=== PATIENT | female | born 1955 | race Caucasian/White ===

== ENCOUNTER 2023-09-02 08:10 | Outpatient (CLI) | payer OTHER, SELFPAY ==
[2023-09-02] MEDS: DENOSUMAB 60 MG/ML SYRINGE SQ (08:31)
[2023-09-02 08:32] VITALS: BP 147/69; PULSE 60; RESP 14; TEMP 36.8; O2SAT 96
== END 2023-09-02 08:45 | disposition home or self-care (01) ==
LOC: INF 08:15
PROVIDERS: PCP Family Medicine; Visit Provider Family Medicine
DX: M81.0 Age-related osteoporosis without current pathological fracture (principal)
CPT/HCPCS: 96372; J0897

== ENCOUNTER 2024-03-06 08:21 | Outpatient (CLI) | payer MEDICARE, SELFPAY ==
[2024-03-06 08:30] VITALS: BP 114/59; PULSE 58; RESP 16; TEMP 36.7; O2SAT 99
[2024-03-06] MEDS: DENOSUMAB 60 MG/ML SYRINGE SQ (08:30)
== END 2024-03-06 08:40 | disposition home or self-care (01) ==
PROVIDERS: PCP Family Medicine; Visit Provider Family Medicine
DX: M81.0 Age-related osteoporosis without current pathological fracture (principal)
CPT/HCPCS: 96372; J0897

== ENCOUNTER 2024-09-14 10:07 | Outpatient (CLI) | payer MEDICARE, SELFPAY ==
[2024-09-14 10:21] VITALS: BP 123/63; PULSE 53; RESP 16; TEMP 36.6; O2SAT 98
[2024-09-14] MEDS: DENOSUMAB 60 MG/ML SYRINGE SUBCUT (10:21)
== END 2024-09-14 10:30 | disposition home or self-care (01) ==
LOC: INF 10:08
PROVIDERS: PCP Family Medicine; Visit Provider Family Medicine
DX: M81.0 Age-related osteoporosis without current pathological fracture (principal)
CPT/HCPCS: 96372; J0897

== ENCOUNTER 2024-10-26 13:37 | Outpatient (CLI) | payer MEDICARE, SELFPAY ==
--- NOTE | 2024-10-26 13:41 | XR_ITS ---
FINAL REPORT CLINICAL HISTORY: Foot pain COMPARISON: None FINDINGS: RIGHT FOOT 3 views of the right foot were obtained. There is no acute fracture or dislocation. Visualized joint spaces are normally aligned. There is soft tissue swelling overlying the medial aspect of the distal 1st metatarsal. There may be mild soft tissue calcification and questionable cortical lucency of the medial 1st metatarsal head. IMPRESSION: Constellation of features which may be seen with gout. Correlate clinically. Reviewed, Interpreted and Dictated by Petar Pollock MD Transcribed by Mohini Tinajero Authenticated and [facility]
--- NOTE | 2024-10-26 13:41 | XR_ITS ---
FINAL REPORT CLINICAL HISTORY: Foot pain COMPARISON: None FINDINGS: LEFT FOOT Three views of the left foot demonstrate no acute fracture or dislocation. The visualized joint spaces are normally aligned. There is mild soft tissue swelling overlying the medial 1st metatarsal. IMPRESSION: Soft tissue swelling without acute bony abnormality. Reviewed, Interpreted and Dictated by Petar Pollock MD Transcribed by Mohini Tinajero Authenticated and [facility]
== END 2024-10-26 23:59 | disposition home or self-care (01) ==
LOC: RAD 13:38
PROVIDERS: PCP Family Medicine; Visit Provider Podiatrist
DX: M79.671 Pain in right foot (principal); M79.672 Pain in left foot
CPT/HCPCS: 73630

== ENCOUNTER 2025-03-19 13:03 | Outpatient (CLI) | payer MEDICARE, SELFPAY ==
--- OUTSIDE RECORDS SUMMARY | 2025-03-14 09:00 | XMS_ITS | Encounter Summary ---
Author Organization [facility] ystem Address [address] [place] [address] Care Team Providers Care Plastics Technician Name Role Phone Josee Escobedo Primary Care Provider [phone] [phone] Encounter Details Date Type Department Care Team (Late st Contact Info) Description 03/14/2025 9:00 AM EDT Office Visit [facility] BARIATRIC SURGERY [address] [place] [address] Bryon Valladares, REHABILITATION TECHNICIAN [address] [place] [address] Underweight (BMI < 18.5) (Primary Dx); S/P bariatric surgery; Intestinal malabsorption, unspecified type; Fatigue, unspecified type; Abnormal blood level of iron; Vitamin D deficiency Social History Tobacco Use Types Packs/Day Years Used Date Smoking Tobacco: Never Passive Smoke Exposure: Never Smokeless Tobacco: Never Tobacco Cessation:Counseling Given: Not Answered Alcohol Use Standard Drinks/Week Comments Never 0 (1 standard drink = 0.6 oz pur e alcohol) Comments Unknown Sex and Gender Information Value Date Recorded Sex Assigned at Female 02/29/2024 2:29 PM EDT Legal Sex Female 10:22 AM EDT Gender Identity Female 02/29/2024 2:29 PM EDT Sexual Orientation Not on file documented as of this encounter Last Filed Vital Signs Vital Sign Reading Time Taken Comments Blood Pressure 104/70 03/14/2025 9:05 AM EDT Pulse 61 03/14/2025 9:05 AM EDT Temperature 37.3 C (99.1 F) 03/14/2025 9:05 AM EDT Respiratory Rate 14 03/14/2025 9:05 AM EDT Oxygen Saturation - - Inhaled Oxygen Concentration - - Weight 42.2 kg (93 lb) 03/14/2025 9:05 AM EDT Height 154.9 cm (5' 1 ) 03/14/2025 9:05 AM EDT Body Mass Index 17.57 03/14/2025 9:05 AM EDT documented in this encounter Progress Notes * Bryon Valladares APRN - 03/14/2025 9:00 AM EDTAddended by: BRYON VALLADARES on: 03/16/2025 11:42 AM Modules accepted: Orders * Bryon Valladares APRN - 03/14/2025 9:00 AM EDT [facility] Bariatric Surgery [address] [address] Patient Name: Janey Manzo Date of : 1955 Date of Visit: 03/14/2025 Reason for Visit: SAMAN HPI: s/p laparoscopic RNY (75 cm antercolic Mat)/TAE/BRENDA w/ Dr. Nilton Hutchins 05/09/2015 Reason for transfer: Unable to maintain weight/protein is very low JS is a 69 year old female here today for an assessment of care. She is s/p 10 years laparoscopic RNY (75 cm antercolic Mat)/TAE/BRENDA w/ Dr. Nilton Hutchins 05/09/2015. Patient and retired in 2017 and relocated back to [place] to be closer to family. Of note, patient has seen [facility] for vitamin concerns. HAYDEN was confirmed to be in 02/2023. Wishes to proceed with [facility]. Reports an uneventful surgery. Op note reviewed. At the time, had a BMI was 36.2 with comorbiditiesof HTN, GERD, hyperlipidemia, pre-diabetes, arthropathy and urinary incontinence. Patient reports a pre surgery weight of 225 lbs. States she was content/maintaining weight around 125 lbs. Today's weight in office is 93 lbs. Weight concerns/decline is the primary reason for needing to reestablish bariatric care. States herweight decline has been steady over the years with no one singular cause. In the patient's opinion,she contributes her weight decline to be multifactorial with increased stressed due to ailing and difficulty chewing due to false teeth. States recent lab work is of concern due to low nutritional status. Patient was placed on megestrol as an appetite stimulate. States she can and does eat but unsure if she is absorbing it . 24hr Diet Recall B-2 hard boiled eggs, pineapple/cantaloupe chunks and bare chicken nuggets. L-Taco soup, 2 big bowels/tuna fish D- Bowel of taco beans Unknown protein intake, not currently tracking. Not opposed to protein shakes. However, not currently consuming either. Recent lab work from 02/02/2025 revealed a protein level of 5.2, albumin level of 3.7,low folate. Prior evaluations- EGD 04/25/[address] Randolph Impression Benign appearing esophageal stenosis. Biopsied. Dailated with an 18-19-20 mm x 8 cm CRE balloon. Z-line irregular at the gastroesophageal junction. Mat-EN-Y anastomosis was found, characterized by erosion. Normal examined jejunum. Of note, patient is currently under the care of Dr. Pawan Trujillo hematology/oncology at [facility] with iron/copper deficiencies. States she has received 1 iron transfusion in the past. Peyton deficiency continues to fluctuate. Last serum copper level 10/30/2024 was 38.6. Patient is currently taking PO copper 2 mg. Per last hematology and oncolgy note on 10/30/2024- Her hemoglobin is low normal at 12 and her iron studies and copper level are still pending. She will return to see me in a year. I will notify her regarding any abnormalities from today. She has lost weight and I reviewed her other studies including normal CT of the abdomen pelvis along with results of her EGD and colonoscopy. I am not certain what other test we would do. She does state that sheis under a lot of stress with her being quite sick. I made no other recommendations . Vitamins-MVI patch plus daily, biotin, vitamin A, B-12 injections, peyton. Per records patient has undergone previous steroid injections most recent 03/12/2025 with Kenalog 10 mg of the following- right thumb trigger injection/ B 1st CMCJ injection/ Left index MCPJ injection/Right ring PIPJ injection/Left index PIPJ injection. Past Medical History: Diagnosis Date Anemia Anxiety Degenerative arthritis Degenerative arthritis Diverticulitis Dyslipidemia Gastric ulcer GERD (gastroesophageal reflux disease) Hypertension Hypothyroidism IBS (irritable bowel syndrome) Iron deficiency anemia Sleep apnea Past Surgical History: Procedure Laterality Date ABDOMINAL HYSTERECTOMY 1995 COLONOSCOPY 05/2024 ENDOSCOPY 2023 KNEE ARTHROPLASTY Bilateral 2006 LAPAROSCOPIC CHOLECYSTECTOMY 11/2017 (+) gallstones LAPAROSCOPIC GASTRIC BYPASS 05/09/2015 w/ HHR TONSILLECTOMY 06/2002 TUBAL ABDOMINAL LIGATION 1991 Current Outpatient Medications: ALPRAZolam (XANAX) 0.25 MG tablet, Take 1 tablet by mouth As Needed for Anxiety., Disp: , Rfl: baclofen (LIORESAL) 10 MG tablet, TAKE 1 TABLET BY MOUTH TWICE A DAY NEEDED FOR PAIN. MAY CAUSE SEDATION, Disp: , Rfl: Calcium Carbonate-Vit D-Min (Calcium 1200) 7057-1008 MG-UNIT chewable tablet, calcium, Disp: , Rfl: COPPER PO, Take 2 mg by mouth Daily., Disp: , Rfl: estradiol (ESTRACE) 0.1 MG/GM vaginal cream, Insert 1 g into the vagina Daily., Disp: , Rfl: famotidine (PEPCID) 20 MG tablet, Take 1 tablet by mouth Every 12 (Twelve) Hours., Disp: , Rfl: folic acid (FOLVITE) 1 MG tablet, Take 1 tablet by mouth Daily., Disp: , Rfl: linaclotide (Linzess) 72 MCG capsule capsule, Take 1 capsule by mouth Daily., Disp: , Rfl: megestrol (MEGACE) 20 MG tablet, Take 1 tablet by mouth Daily., Disp: , Rfl: Multiple Vitamins-Minerals (Bariatric Multivitamins/Iron) capsule, Take by mouth., Disp: , Rfl: sertraline (ZOLOFT) 50 MG tablet, Take 1 tablet by mouth Daily., Disp: , Rfl: Sutab 7601-796-593 MG tablet, Take 12 tablets by mouth Take As Directed. Take 12 tablets by mouth at 5 pm and 12 tablets by mouth at 10 pm. Follow prep instructions provided by office. Call [phone] for additional questions, Disp: 24 tablet, Rfl: 0 traZODone (DESYREL) 100 MG tablet, Take 1 tablet by mouth Every Night., Disp: , Rfl: Vitamin A 3 MG (67693 UT) capsule, Take 1 capsule by mouth Daily., Disp: , Rfl: rkgkrl-uuebtaklb-wtxbohewj sulfates (Suprep Bowel Prep Kit) 17.5-3.13-1.6 GM/177ML solution oral solution, Take First Dose at 5 pm Take Second Dose at 10 pm, Nothing to eat or drink after midnight. May substitute for Golytely or Moviprep. Follow instructions provided by Office. Call [phone] with questions. (Patient not taking: Reported on 03/14/2025), Disp: 354 mL, Rfl: 0 vitamin D (ERGOCALCIFEROL) 1.25 MG (01570 UT) capsule capsule, Take 1 capsule by mouth 2 (Two) Times a Week. (Patient not taking: Reported on 03/14/2025), Disp: , Rfl: Allergies Allergen Reactions Iodinated Contrast Media Nausea And Vomiting Nsaids Unknown (See Comments) Sumatriptan Unknown (See Comments) Family History Problem Relation Age of Onset Bone cancer Mother Alzheimer's disease Father Heart attack Sister Breast cancer Sister Heart attack Sister Heart disease Sister Social History Socioeconomic History Marital status: Tobacco Use Smoking status: Never Passive exposure: Never Smokeless tobacco: Never Vaping Use Vaping status: Never Used Substance and Sexual Activity Alcohol use: Never Drug use: Never Sexual activity: Defer BP 104/70 (BP Location: Left arm, Patient Position: Sitting) Pulse 61 Temp 99.1 ??F (37.3 ??C) Resp 14 Ht 154.9 cm (61 ) Wt 42.2 kg (93 lb) BMI 17.57 kg/m?? Physical Exam Vitals reviewed. Cardiovascular: Rate and Rhythm: Normal rate. Pulmonary: Effort: Pulmonary effort is normal. Musculoskeletal: General: Normal range of motion. Neurological: Mental Status: She is alert and oriented to person, place, and time. Psychiatric: Behavior: Behavior normal. Assessment: 10 years s/p laparoscopic RNY (75 cm antercolic Mat)/TAE/BRENDA schmitt/ Dr. Nilton Hutchins 05/09/2015 ICD-10-CM ICD-9-CM 1. Underweight (BMI < 18.5) R63.6 783.22 Z68.1 V85.0 2. S/P bariatric surgery Z98.84 V45.86 3. Intestinal malabsorption, unspecified type K90.9 579.9 BMI is below normal parameters (malnutrition). Recommendations: see plan Plan: Will consult with Dr. Potter. Additional input to follow. Addendum 03/16/2025- SAMAN approved per Dr. Potter. Will plan on basline RNY labs, refractory grinder operator consultation, vitamin replacement education. F/U in one month for assessment of care. Vitamin Requirements Lifelong vitamin supplementation is required following this surgery The list below details the necessary vitamins you must take daily: Multi Vitamin - Adult Strength Vitamin B12 - 1000 mcg sublingual (absorbed under the tongue) daily Vitamin B-1 (thiamine) 100 mg daily Vitamin D - 5,000 IU daily Iron - 65mg daily Calcium - 1200 mg daily Vitamin C 1200 mg daily Note: Additional vitamin supplementation may be required depending on your lab values Bryon Valladares APRN I spent 60 minutes caring for Janey on this date of service. This time includes time spent by me inthe following activities: preparing for the visit, reviewing tests, performing a medically appropriate examination and/or evaluation, referring and communicating with other health intensive care unit nurse,documenting information in the medical record, and care coordination. documented in this encounter Plan of Treatment Upcoming Encounters Date Type Department Care Team (Late st Contact Info) Description 04/16/2025 2:30 PM EDT Office Visit [facility] BARIATRIC SURGERY [address] [place] [address] Deana Potter MD [address] [place] [address] 05/30/2025 1:00 PM EST Office Visit [facility] ENDOCRINOLOGY [address] [facility] [address] [place] [id number] Shari Valdivia MD [address] [facility] [address] [place] [id number] Scheduled Orders Name Type Priority Associated Diagnoses Orde r Schedule CBC & Differential Lab Panel Routine Underweight (BMI < 18.5) S/P bariatric surgery Intestinal malabsorption, unspecified type Fatigue, unspecified type Abnormal blood level of iron Vitamin D deficiency Ordered: 03/16/2025 Comprehensive Metabolic Panel Lab Routine Underweight (BMI < 18.5) S/P bariatric surgery Intestinal malabsorption, unspecified type Fatigue, unspecified type Abnormal blood level of iron Vitamin D deficiency Ordered: 03/16/2025 Copper, Serum Lab Routine Underweight (BMI < 18.5) S/P bariatric surgery Intestinal malabsorption, unspecified type Fatigue, unspecified type Abnormal blood level of iron Vitamin D deficiency Ordered: 03/16/2025 Ferritin Lab Routine Underweight (BMI < 18.5) S/P bariatric surgery Intestinal malabsorption, unspecified type Fatigue, unspecified type Abnormal blood level of iron Vitamin D deficiency Ordered: 03/16/2025 Folate Lab Routine Underweight (BMI < 18.5) S/P bariatric surgery Intestinal malabsorption, unspecified type Fatigue, unspecified type Abnormal blood level of iron Vitamin D deficiency Ordered: 03/16/2025 Iron Lab Routine Underweight (BMI < 18.5) S/P bariatric surgery Intestinal malabsorption, unspecified type Fatigue, unspecified type Abnormal blood level of iron Vitamin D deficiency Ordered: 03/16/2025 PTH, Intact Lab Routine Underweight (BMI < 18.5) S/P bariatric surgery Intestinal malabsorption, unspecified type Fatigue, unspecified type Abnormal blood level of iron Vitamin D deficiency Ordered: 03/16/2025 Protime-INR Lab Routine Underweight (BMI < 18.5) S/P bariatric surgery Intestinal malabsorption, unspecified type Fatigue, unspecified type Abnormal blood level of iron Vitamin D deficiency Ordered: 03/16/2025 Prealbumin Lab Routine Underweight (BMI < 18.5) S/P bariatric surgery Intestinal malabsorption, unspecified type Fatigue, unspecified type Abnormal blood level of iron Vitamin D deficiency Ordered: 03/16/2025 Phosphorus Lab Routine Underweight (BMI < 18.5) S/P bariatric surgery Intestinal malabsorption, unspecified type Fatigue, unspecified type Abnormal blood level of iron Vitamin D deficiency Ordered: 03/16/2025 Methylmalonic Acid, Serum Lab Routine Underweight (BMI < 18.5) S/P bariatric surgery Intestinal malabsorption, unspecified type Fatigue, unspecified type Abnormal blood level of iron Vitamin D deficiency Ordered: 03/16/2025 Magnesium Lab Routine Underweight (BMI < 18.5) S/P bariatric surgery Intestinal malabsorption, unspecified type Fatigue, unspecified type Abnormal blood level of iron Vitamin D deficiency Ordered: 03/16/2025 Vitamin A Lab Routine Underweight (BMI < 18.5) S/P bariatric surgery Intestinal malabsorption, unspecified type Fatigue, unspecified type Abnormal blood level of iron Vitamin D deficiency Ordered: 03/16/2025 Vitamin B1, Whole Blood Lab Routine Underweight (BMI < 18.5) S/P bariatric surgery Intestinal malabsorption, unspecified type Fatigue, unspecified type Abnormal blood level of iron Vitamin D deficiency Ordered: 03/16/2025 Vitamin D,25-Hydroxy Lab Routine Underweight (BMI < 18.5) S/P bariatric surgery Intestinal malabsorption, unspecified type Fatigue, unspecified type Abnormal blood level of iron Vitamin D deficiency Ordered: 03/16/2025 Vitamin E Lab Routine Underweight (BMI < 18.5) S/P bariatric surgery Intestinal malabsorption, unspecified type Fatigue, unspecified type Abnormal blood level of iron Vitamin D deficiency Ordered: 03/16/2025 Vitamin K1 Lab Routine Underweight (BMI < 18.5) S/P bariatric surgery Intestinal malabsorption, unspecified type Fatigue, unspecified type Abnormal blood level of iron Vitamin D deficiency Ordered: 03/16/2025 Zinc Lab Routine Underweight (BMI < 18.5) S/P bariatric surgery Intestinal malabsorption, unspecified type Fatigue, unspecified type Abnormal blood level of iron Vitamin D deficiency Ordered: 03/16/2025 documented as of this encounter Visit Diagnoses Diagnosis Underweight (BMI < 18.5)- Primary S/P bariatric surgery Intestinal malabsorption, unspecified type Fatigue, unspecified type Abnormal blood level of iron Other abnormal blood chemistry Vitamin D deficiency documented in this encounter Care Teams Plastics Technician Relationship Specialty Start Date End Date Josee Escobedo DO [address] [place] [address] PCP - General Family Medicine 06/28/22 documented as of this encounter
--- OUTSIDE RECORDS SUMMARY | 2025-03-19 13:08 | XMS_ITS | Encounter Summary ---
[facility] Address [address] [place] [address] Care Team Providers Care Geospatial Technician Name Role Phone Josee Escobedo Primary Care Provider [phone] [phone] Encounter Details Date Type Department Care Team (Late st Contact Info) Description 03/16/2025 Telephone [facility] BARIATRIC SURGERY [address] [facility] [address] [place] [address] Social History Tobacco Use Types Packs/Day Years Used Date Smoking Tobacco: Never Passive Smoke Exposure: Never Smokeless Tobacco: Never Alcohol Use Standard Drinks/Week Comments Never 0 (1 standard drink = 0.6 oz pur e alcohol) Comments Unknown Sex and Gender Information Value Date Recorded Sex Assigned at Female 02/29/2024 2:29 PM EDT Legal Sex Female 10:22 AM EDT Gender Identity Female 02/29/2024 2:29 PM EDT Sexual Orientation Not on file documented as of this encounter Miscellaneous Notes * Telephone Encounter - Jenelle Mancia RD - 03/16/2025 2:35 PM EDT Called pt post op bariatric surgery to set up a nutrition appt. Left a voicemail asking pt to call back documented in this encounter Plan of Treatment Upcoming Encounters Date Type Department Care Team (Late st Contact Info) Description 04/16/2025 2:30 PM EDT Office Visit [facility] BARIATRIC SURGERY [address] [place] [address] Deana Potter MD [address] [place] [address] 05/30/2025 1:00 PM EST Office Visit [facility] ENDOCRINOLOGY [address] [facility] [address] [place] [address] Shari Valdivia MD [address] [facility] [address] [place] [address] documented as of this encounter Visit Diagnoses Not on filedocumented in this encounter Care Teams Geospatial Technician Relationship Specialty Start Date End Date Josee Escobedo DO [address] [place] [address] PCP - General Family Medicine 06/28/22 documented as of this encounter
--- OUTSIDE RECORDS SUMMARY | 2025-03-19 13:08 | XMS_ITS | Clinical Summary ---
Author Organization [facility] Address [address] [place], [place] [id number] Care Team Providers Care Typewriters Functional Tester Name Role Phone Pcp, No Primary Care Provider Unavailabl e Allergies Active Allergy Reactions Criticality Noted Date Comments Nsaids Unknown - Patient st ates they do not know rxn details Low 09/04/2022 Sumatriptan Unknown - Patient st ates they do not know rxn details Low 09/04/2022 Medications ergocalciferol 1.25 MG (21385 UT) capsule Take 1 capsule (50,000 Units) by mouth 2 (two) times a week. 07/16/19 23 Active famotidine (Pepcid) 20 MG tablet TAKE 1 TABLET BY MOUTH EVERY 12 HOURS FOR 10 DAYS 06/16/20 22 Active folic acid (Folvite) 1 MG tablet Take 1 tablet (1,000 mcg) by mouth 1 (one) time each day. 07/16/19 23 Active sertraline (Zoloft) 50 MG tablet 08/18/19 23 Active Calcium Carbonate-Vit D-Min (Calcium 1200) 5362-2561 MG-UNIT chewable tablet calcium Active Multiple Vitamins-[place] als (Bariatric Multivitamins/ Iron) capsule Take by mouth. A ctive cyanocobalamin (Vitamin B-12) 1000 MCG/ML injection INJECT 1 MILLILITER INTRAMUSCULARLY ONCE A MONTH 01/11/20 23 Active baclofen (Lioresal) 10 MG tablet TAKE 1 TABLET BY MOUTH TWICE A DAY NEEDED FOR PAIN. MAY CAUSE SEDATION 02/18/20 23 Active Active Problems Problem Noted Date Diagnosed Date History of Mat-en-Y gastric bypass 01/21/2023 BMI less than 19,adult 09/04/2022 Copper deficiency 09/04/2022 Gastroesophageal reflux disease 01/04/2013 HTN (hypertension) 01/04/2013 Migraine 01/04/2013 Sleep apnea 01/04/2013 Resolved Problems Problem Noted Date Diagnosed Date Resolved Date Insomnia 01/04/2013 03/18/2025 Family History Medical History Relation Name Comments Alzheimer's disease Father Cancer Mother Heart disease Sister Relation Name Status Comments Father Mother Sister Social History Tobacco Use Types Packs/Day Years Used Date Smoking Tobacco: Never Smokeless Tobacco: Never Tobacco Cessation:Counseling Given: Yes Alcohol Use Standard Drinks/Week Comments Yes 0 (1 standard drink = 0.6 oz pur e alcohol) socially PHQ-2 Answer Date Recorded Patient Health Questionnaire-2 Score 0 03/18/2023 PHQ-2A Answer Date Recorded Patient Health Questionnaire-2 Score 0 03/18/2023 Comments Unknown Sex and Gender Information Value Date Recorded Sex Assigned at Not on file Legal Sex Female 12:47 PM EST Gender Identity Not on file Sexual Orientation Not on file Last Filed Vital Signs Vital Sign Reading Time Taken Comments Blood Pressure 157/82 03/18/2023 11:24 AM EDT Pulse 59 03/18/2023 11:24 AM EDT Temperature - - Respiratory Rate 16 03/18/2023 11:24 AM EDT Oxygen Saturation 98% 03/18/2023 11:24 AM EDT Inhaled Oxygen Concentration - - Weight 45.8 kg (101 lb) 03/18/2023 11:18 AM EDT Height 157.5 cm (5' 2 ) 03/18/2023 11:18 AM EDT Body Mass Index 18.47 03/18/2023 11:18 AM EDT Plan of Treatment Health Maintenance Due Date Last Done Comments [facility]-Bone Density Scan 1955 [facility]-Hepatitis C Screening 1955 [facility]-Medicare Annual Wellness (AWV) 1955 [facility]-Infant/Child/Adol SDOH Screenings 1955 [facility]- SDOH Screenings 1972 [facility]-Adult SDOH Screenings 1972 [facility]-DTaP,Tdap,and Td Vaccines (1 - Tdap) 1973 CT Colonography 1999 Colonoscopy 1999 FIT-DNA 1999 FIT 1999 FOBT 1999 Sigmoidoscopy 1999 [facility]-Colorectal Cancer Screening 1999 [facility]-Breast Cancer Screening 2004 [facility]-Pneumococcal Vaccine: 50+ Years (1 of 1 - PCV) 2004 [facility]-Zoster Vaccines (1 of 2) 2004 [facility]-RSV Vaccine: 60+ Years or (1 - Risk 60-74 years 1-dose series) 2014 [facility]-Depression Screening 03/18/2024 03/18/2023 [id number] Vaccine ( - season) 2025 04/13/2022, 02/10/2022, 10/21/2020, Additional history exists [facility]-Influenza Vaccine (#1) 02/26/202504/16, 10/05/2021, 03/29/2012, Additional history exists HPV Vaccines Aged Out No longer eligi ble based on patient's age to complete this topic [facility]-HIB Vaccines Aged Out No longer e ligible based on patient's age to complete this topic [facility]-Hepatitis A Vaccines Aged Out No longer eligible based on patient's age to complete this topic [facility]-IPV Vaccines Aged Out No longer e ligible based on patient's age to complete this topic [facility]-Rotavirus Vaccines Aged Out No lo nger eligible based on patient's age to complete this topic Insurance MEDICARE Care Teams Typewriters Functional Tester Relationship Specialty Start Date End Date Pcp, [facility] [address] [place] [address] PCP - General Family Medicine 08/13/22
--- OUTSIDE RECORDS SUMMARY | 2025-03-19 13:08 | XMS_ITS | Encounter Summary ---
Author Organization [facility] ystem Address [address] [place] [address] Care Team Providers Care Welder Production Line Combination Name Role Phone Joese Escobedo Primary Care Provider +1 [phone] Encounter Details Date Type Department Care Team (Late st Contact Info) Description 03/16/2025 Telephone [facility] BARIATRIC SURGERY [address] [place] [address] ValladaresBryon, EDI CONSULTANT [address] [place] [address] Social History Tobacco Use Types Packs/Day Years [...] encounter Miscellaneous Notes * Telephone Encounter - Graciela Gotti CMA - 03/16/2025 1:59 PM EDT Called patient and informed her that her SAMAN was approved. Lab work has been ordered. Labs can be collected at any [facility] facility. Please educated on vitamin requirements- I went over all vitamin requirements. Patient ask I send this via [facility] as well so she will have a paper copy. We will make adjustments pending lab work. Indoor Landscape Architect consultation ordered. Will need follow- up in a month. Patient verbally understood, and will send my chart message. Transferred call up front to scheduleappointment. Vitamin Requirements Multi-Vitamin Adult Strength, one tablet daily If using chewable or gummy forms, take two tablets daily Make sure your vitamin contains iron, vitamin K, and zinc Calcium with Vitamin D 1200 mg Calcium Citrate and 400 IU Vitamin D daily Vitamin B1 (or Thiamine) 100 mg daily Vitamin B12 1000 mcg sublingual (absorbed under the tongue) daily Vitamin D 5000 IU daily (in addition to Vitamin D in calcium supplement) Iron 65mg daily Do not take at the same time as your calcium and multi-vitamin, this will alter the absorption of the supplements. Vitamin C 1200 mg daily Take with your iron supplement for better iron absorption. Below is a sample schedule for daily vitamin supplementation: BreakfastLunchDinnerBedtime Multivitamin and Vitamin B12 Vitamin B1 and Calcium Vitamin D and Calcium Iron and Vitamin C * Telephone Encounter - Bella Tadeo MA - 03/16/2025 11:59 AM EDT ----- Message from Bryon Valladares sent at 03/16/2025 11:45 AM EDT ----- Regarding: FW: Please advise Please contact patient, SAMAN approved. Lab work has been ordered. Labs can be collected at any [facility] facility. Please educated on vitamin requirements. We will make adjustments pending lab work. Indoor Landscape Architect consultation ordered. Will need follow-up in a month please and thank you. Vitamin Requirements Multi-Vitamin Adult Strength, one tablet daily If using chewable or gummy forms, take two tablets daily Make sure your vitamin contains iron, vitamin K, and zinc Calcium with Vitamin D 1200 mg Calcium Citrate and 400 IU Vitamin D daily Vitamin B1 (or Thiamine) 100 mg daily Vitamin B12 1000 mcg sublingual (absorbed under the tongue) daily Vitamin D 5000 IU daily (in addition to Vitamin D in calcium supplement) Iron 65mg daily Do not take at the same time as your calcium and multi-vitamin, this will alter the absorption of the supplements. Vitamin C 1200 mg daily Take with your iron supplement for better iron absorption. Below is a sample schedule for daily vitamin supplementation: BreakfastLunchDinnerBedtime Multivitamin and Vitamin B12 Vitamin B1 and Calcium Vitamin D and Calcium Iron and Vitamin C Note: Additional vitamin supplementation may be required depending on your lab values ----- Message ----- From: Deana Potter MD Sent: 03/16/2025 11:22 AM EDT To: Bryon Valladares APRN Subject: RE: Please advise I will accept the transfer. Needs labs and see Jenelle for diet intervention. Needs vitamin education. Have her back in 1 month to assess compliance with vitamins. If GI symptoms persist, let me repeat EGD. Thanks! ----- Message ----- From: Bryon Valladares APRN Sent: 03/14/2025 11:37 AM EDT To: Deana Potter MD Subject: Please advise Reason for Visit: SAMAN ?? HPI: s/p laparoscopic RNY (75 cm antercolic Mat)/TAE/BRENDA schmitt/ Dr. Nilton Hutchins 05/09/2015 ?? Reason for transfer: Unable to maintain weight/protein is very low JS is a 69 year old female here today for an assessment of care. She is s/p 10 years laparoscopic RNY (75 cm antercolic Mat)/TAE/BRENDA schmitt/ Dr. Nilton Hutchins 05/09/2015. Patient and retired in 2017 and relocated back to [place] to be closer to family. Of note, patient has seen [facility] for vitamin concerns. HAYDEN was confirmed to be in 02/2023. Wishes to proceed with [facility]. Reports an uneventful surgery. Op note reviewed. At the time, had a BMI was 36.2 with comorbiditiesof HTN, GERD, hyperlipidemia, pre-diabetes, arthropathy, urinary incontience and Patient reports a pre surgery weight of 225 lbs. States she was content/maintaining weight around 125 lbs. Today's weight in office is 93 lbs. Weight concerns/declines is the primary reason for needing to reestablish bariatric care. States her weight decline has been steady over the years with no one singular cause. In the patient's opinion, she contributes her weight declined to be multifactorial with increased stressed due [...] care of Dr. Pawan Trujillo hematology/oncology at [facility] with iron/copper deficiencies. States she [...] injection/Right ring PIPJ injection/Left index PIPJ injection. --- Please advise on SAMAN? Patient has not had recent RNY labs, last prealbumin was 2022. Labs on 02/02/2025 overall were okay. Believe she needs aggressive dietary intervention. Thank you. documented in this encounter Plan of Treatment Upcoming Encounters Date Type Department Care Team (Late st Contact Info) Description 04/16/2025 2:30 PM EDT Office Visit [facility] BARIATRIC SURGERY [address] [place] [address] Deana Potter MD [address] [place] [address] 05/30/2025 1:00 PM EST Office Visit [facility] ENDOCRINOLOGY [address] [facility] [address] [place] [address] Sahri Valdivia MD [address] [facility] [address] [place] [address] documented as of this encounter Visit Diagnoses Not on filedocumented in this encounter Care Teams Welder Production Line Combination Relationship Specialty Start Date End Date Josee Escobedo DO [facility] [place] [address] PCP - General Family Medicine 06/28/22 documented as of this encounter
--- OUTSIDE RECORDS SUMMARY | 2025-03-19 13:08 | XMS_ITS | Encounter Summary ---
[facility] Address [address] [place] [address] Care Team Providers Care Supervising Deputy Name Role Phone Josee Escobedo Primary Care Provider [phone] [phone] Encounter Details Date Type Department Care Team (Latest Contact Info) Description 03/14/2025 Travel Social History Tobacco Use Types Packs/Day Years [...] on file documented as of this encounter Plan of Treatment Upcoming Encounters Date Type Department Care Team (Late st Contact Info) Description 04/16/2025 2:30 PM EDT Office Visit [facility] BARIATRIC SURGERY [address] [place] [address] Deana Potter MD [address] [place] [address] 05/30/2025 1:00 PM EST Office Visit [facility] ENDOCRINOLOGY [address] [address] Shari Valdivia MD [address] [phone] documented as of this encounter Visit Diagnoses Not on filedocumented in this encounter Care Teams Supervising Deputy Relationship Specialty Start Date End Date Josee Escobedo DO [address] [place] [address] PCP - General Family Medicine 06/28/22 documented as of this encounter
--- OUTSIDE RECORDS SUMMARY | 2025-03-19 13:09 | XMS_ITS | Encounter Summary ---
Author Organization [facility] ystem Address [address] [place] [address] Care Team Providers Care Marketing Assistant Retail Division Name Role Phone Josee Escobedo Primary Care Provider [phone] [phone] Encounter Details Date Type Department Care Team (Late st Contact Info) Description 03/16/2025 Patient rounding ([facility]) [facility] BARI[facility] SURGERY [address] [place] [address] Bryon Valladares, PRODUCT ARCHITECT [address] [place] [id number] Social History Tobacco Use Types Packs/Day Years [...] on file documented as of this encounter Progress Notes * Flores Rodriguez - 03/16/2025 3:52 PM EDT A [employer] message has been sent to the patient for PATIENT ROUNDING for [facility] - Bariatric Surgery/[facility] Medical Weight Mgmt. documented in this encounter Plan of Treatment Upcoming Encounters Date Type Department Care Team (Late st Contact Info) Description 04/16/2025 2:30 PM EDT Office Visit [facility] BARIATRIC SURGERY [address] [place] [address] Deana Potter MD [address] [place] [address] 05/30/2025 1:00 PM EST Office Visit [facility] ENDOCRINOLOGY [address] [facility] [address] [place] [address] Shari Valdivia MD [address] [facility] [address] [place] [address] documented as of this encounter Visit Diagnoses Not on filedocumented in this encounter Care Teams Marketing Assistant Retail Division Relationship Specialty Start Date End Date Josee Escobedo DO [address] [place] [address] PCP - General Family Medicine 06/28/22 documented as of this encounter
--- OUTSIDE RECORDS SUMMARY | 2025-03-19 13:09 | XMS_ITS | Encounter Summary ---
Author Organization [facility] ystem Address [address] [place] [address] Care Team Providers Care Catalyst Plant Supervisor Name Role Phone Josee Escobedo Primary Care Provider [phone] [phone] Encounter Details Date Type Department Care Team (Late st Contact Info) Description 03/16/2025 Telephone [facility] BARIATRIC SURGERY [address] [facility] [address] [place] [address] Social History [...] Encounter - Jenelle Mancia RD - 03/16/2025 3:13 PM EDT Mar 21 at 9a nutrition consult bariatrics documented in this encounter Plan of Treatment Upcoming Encounters Date Type Department Care Team (Late st Contact Info) Description 04/16/2025 2:30 PM EDT Office Visit [facility] BARIATRIC SURGERY [address] [place] [address] Deana Potter MD [address] [place] [address] 05/30/2025 1:00 PM EST Office Visit [facility] ENDOCRINOLOGY [address] [facility] [address] [place] [address] Shari Valdivia MD [address] [facility] [address] [place] [address] documented as of this encounter Visit Diagnoses Not on filedocumented in this encounter Care Teams Catalyst Plant Supervisor Relationship Specialty Start Date End Date Josee Escobedo DO [address] [place] [address] PCP - General Family Medicine 06/28/22 documented as of this encounter
--- OUTSIDE RECORDS SUMMARY | 2025-03-19 13:09 | XMS_ITS | Clinical Summary ---
[facility] Address [address] [place] [address] Care Team Providers Care Early Childhood Lead Teacher Name Role Phone Josee Escobedo DO Primary Care Provider [phone] [phone] Allergies Active Allergy Reactions Criticality Noted Date Comments Iodinated Contrast Media Nausea And Vomiting High Nsaids Unknown (See Comments) Low 09/04/2022 Sumatriptan Unknown (See Comments) Low 07/29/2022 Medications baclofen (LIORESAL) 10 MG tablet TAKE 1 TABLET BY MOUTH TWICE A DAY NEEDED FOR PAIN. MAY CAUSE SEDATION 3 Active Calcium Carbonate-Vit D-Min (Calcium 1200) 5389-2651 MG-UNIT chewable tablet calcium Acti ve vitamin D (ERGOCALCIFEROL ) 1.25 MG (86614 UT) capsule capsule Take 1 capsule by mouth 2 (Two) Times a Week. 3 Active famotidine (PEPCID) 20 MG tablet Take 1 tablet by mouth Every 12 (Twelve) Hours. 2 Active folic acid (FOLVITE) 1 MG tablet Take 1 tablet by mouth Daily. 3 Active Multiple Vitamins-Minera ls (Bariatric Multivitamins/I cal) capsule Take by mouth. Ac tive sodium-potassiu m-magnesium sulfates (Suprep Bowel Prep Kit) 17.5-3.13-1.6 GM/177ML solution oral solution Take First Dose at 5 pm Take Second Dose at 10 pm, Nothing to eat or drink after midnight. May substitute for Golytely or Moviprep. Follow instructions provided by Office. Call [phone] with questions. 354 mL 4 Active Additional Information Patient not taking.Reported on 03/14/2025 Sutab 9230-292-293 MG tablet Take 12 tablets by mouth Take As Directed. Take 12 tablets by mouth at 5 pm and 12 tablets by mouth at 10 pm. Follow prep instructions provided by office. Call [phone] for additional questions 24 tablet 4 Active linaclotide (Linzess) 72 MCG capsule capsule Take 1 capsule by mouth Daily. 5 Active megestrol (MEGACE) 20 MG tablet Take 1 tablet by mouth Daily. Active traZODone (DESYREL) 100 MG tablet Take 1 tablet by mouth Every Night. 5 Active estradiol (ESTRACE) 0.1 MG/GM vaginal cream Insert 1 g into the vagina Daily. Active ALPRAZolam (XANAX) 0.25 MG tablet Take 1 tablet by mouth As Needed for Anxiety. Active COPPER PO Take 2 mg by mouth Daily. Active Vitamin A 3 MG (60957 UT) capsule Take 1 capsule by mouth Daily. Active sertraline (ZOLOFT) 50 MG tablet Take 1 tablet by mouth Daily. Active Active Problems Problem Noted Date Diagnosed Date Hypertension 10/06/2022 Assessment & Plan (10/06/2022 6:50 PM EDT): Hypertension is well controlled. Blood pressure today is 118/60. No current medications. Blood pressure stabilized after gastric bypass surgery and no longer requiring medical therapy. Precordial pain 10/06/2022 Assessment & Plan (10/06/2022 6:50 PM EDT): Stress echocardiogram for further evaluation. Abnormal EKG 10/06/2022 Abnormal echocardiogram 10/06/2022 Assessment & Plan (10/07/2022 12:38 PM EDT): Asymmetric septal hypertrophy noted on echocardiogram from 09/15/22. Will continue to monitor with annual echocardiogram Sleep apnea Assessment & Plan (10/06/2022 6:48 PM EDT): Resolved after significant weight loss from gastric bypass surgery. Diverticulitis Anemia Dyslipidemia Anxiety Degenerative arthritis GERD (gastroesophageal reflux disease) Gastric ulcer Hypothyroidism IBS (irritable bowel syndrome) Iron deficiency anemia Encounters Date Type Department Care Team Description 03/16/2025 Patient rounding ([facility] [facility] BARIATRIC SURGERY [address] [place] [address] Bryon Valladares APRN 03/16/2025 Telephone [facility] BARIATRIC SURGERY [address] [place] [address] Jenelle Mancia, RD 03/16/2025 Telephone [facility] BARIATRIC SURGERY [address] [place] [address] Jenelle Mancia, RD 03/16/2025 Telephone [facility] BARIATRIC SURGERY [address] [place] [address] Bryon Valladares APRN 03/14/2025 9:00 AM EDT Office Visit [facility] BARIATRIC SURGERY [address] [place] [address] Bryon Valladares, STACKER ATTENDANT Underweight (BMI < 18.5) (Primary Dx); S/P bariatric surgery; Intestinal malabsorption, unspecified type; Fatigue, unspecified type; Abnormal blood level of iron; Vitamin D deficiency 03/14/2025 Travel from Last 3 Months Family History Medical History Relation Name Comments Alzheimer's disease Father Bone cancer Mother Breast cancer Sister 1 Heart attack Sister 1 Heart attack Sister 2 Heart disease Sister 2 Relation Name Status Comments Father Mother Sister 1 Sister 2 Alive Social History Tobacco Use Types Packs/Day Years [...] PM EDT Sexual Orientation Not on file Last Filed Vital Signs Vital Sign Reading Time Taken Comments Blood Pressure 104/70 03/14/2025 9:05 AM EDT Pulse 61 03/14/2025 9:05 AM EDT Temperature 37.3 C (99.1 F) 03/14/2025 9:05 AM EDT Respiratory Rate 14 03/14/2025 9:05 AM EDT Oxygen Saturation 96% 10/06/2022 9:24 AM EDT Inhaled Oxygen Concentration - - Weight 42.2 kg (93 lb) 03/14/2025 9:05 AM EDT Height 154.9 cm (5' 1 ) 03/14/2025 9:05 AM EDT Body Mass Index 17.57 03/14/2025 9:05 AM EDT Plan of Treatment Upcoming Encounters Date Type Department Care Team (Late st Contact Info) Description 04/16/2025 2:30 PM EDT Office Visit [facility] BARIATRIC SURGERY [address] [place] [address] Deana Potter MD [address] [place] [address] 05/30/2025 1:00 PM EST Office Visit [facility] ENDOCRINOLOGY [address] [place] [address] Shari Valdivia MD [address] [facility] [address] [place] [address] Health Maintenance Due Date Last Done Comments DXA SCAN 1954 TDAP/TD VACCINES (1 - Tdap) 1973 COLOGUARD 1999 COLON CANCER SCREENING 5 YEA R SIGMOIDOSCOPY 1999 CT COLONOGRAPHY 1999 FECAL OCCULT BLOOD TEST 1999 FIT Testing (1 year) 1999 Pneumococcal Vaccine 50+ (1 of 1 - PCV) 2004 ZOSTER VACCINE (1 of 2) 2004 ANNUAL WELLNESS VISIT 09/16/2022 HEPATITIS C SCREENING 09/16/2022 INFLUENZA VACCINE 01/26/2025 10/05/2021, , 04/07/2011, Additional history exists COVID-19 Vaccine (5 - 2024-2 6 season) 2025 04/13/2022, 02/10/2022, 10/21/2020, Additional history exists MAMMOGRAM 06/22/2026 06/22/2024, 05/29, 06/18/2023, Additional history exists COLONOSCOPY 06/27/2029 06/27/2024 COLORECTAL CANCER SCREENING 06/27/2029 Procedures Procedure Name Priority Date/Time Associated Diagnosis Comments SCANNED - LABS 02/02/2025 SCANNED - COLONOSCOPY 06/27/2024 from Last 3 Months or Most Recently Relevant to Health Maintenance Results * LABS SCANNED (02/02/2025) [facility] LAB BLOOD ORDERABLES Final Re sult * Colonoscopy, Scan (06/27/2024) Barrett Randolph MD CHART REVIEW T ABS Final Result from Last 3 Months or Most Recently Relevant to Health Maintenance Insurance [facility] [employer] PPO Care Teams Early Childhood Lead Teacher Relationship Specialty Start Date End Date Josee Escobedo DO [address] [place] [address] PCP - General Family Medicine 06/28/22
[2025-03-19 13:19] VITALS: BP 122/70; PULSE 76; RESP 16; TEMP 36.8; O2SAT 95
[2025-03-19] MEDS: DENOSUMAB 60 MG/ML SYRINGE SUBCUT (13:19)
== END 2025-03-19 23:59 | disposition home or self-care (01) ==
LOC: INF 13:03
PROVIDERS: PCP Family Medicine; Visit Provider Family Medicine
DX: M81.0 Age-related osteoporosis without current pathological fracture (principal)
CPT/HCPCS: 96372; J0897